=== PATIENT | female | born 1965 | race Caucasian/White ===

== ENCOUNTER 2018-09-02 09:58 | Emergency (ER) | payer MEDICARE ==
[2018-09-02 10:54] LABS: INR-International Normal Ratio 1.4; PTT 37.4 SEC (22.9-36.1); Prothrombin Time 17.1 SEC (12.0-14.7)
[2018-09-02 10:55] LABS: D-Dimer Test 0.61 *mcg/mL (0.27-0.43)
[2018-09-02] MEDS ORDERED: Diltiazem 125 MG/25 ML ONE (11:00)
[2018-09-02 11:06] LABS: ALT (SGPT) 26 U/L (8-55); AST (SGOT) 31 U/L (5-34); Alkaline Phosphatase 175 U/L (40-150); Anion Gap 14 mmol/L (10-20); BUN (Urea Nitrogen) 8 mg/dL (7.0-18.7); Bilirubin, Total 1.2 mg/dL (0.2-1.2); Calc. Creatinine Clearance 0 mL/min (70-130); Calcium 9.6 mg/dL (7.8-10.44); Carbon Dioxide 24 mmol/L (22-29); Chloride 93 mmol/L (98-107); Estimated GFR-MDRD Greater than 90; Glucose 170 mg/dL (70-105); Potassium 3.7 mmol/L (3.5-5.1); Sodium 127 mmol/L (136-145)
[2018-09-02 11:08] LABS: Hemoglobin 12.8 g/dL (12.0-16.0); Mean Corpuscular HGB CONC 33.2 g/dL (32.0-36.0); Mean Corpuscular Hemoglobin 28.6 pg (27.0-31.0); Mean Corpuscular Volume 86.1 fL (78.0-98.0); Mean Platelet Volume 9.5 fL (7.4-10.4); Platelet Count 177 thou/uL (130-400); RBC Distribution Width 12.7 % (11.5-14.5); Red Blood Cell (RBC) Count 4.48 mill/uL (4.20-5.40); White Blood Cell (WBC) Count 4.8 thou/uL (4.8-10.8)
[2018-09-02 11:09] LABS: Band 5 % (5-11); Lymphocytes 4 % (21-51); MDiff Complete? YES; Monocytes 6 % (0-10); Neutrophil 85 % (42-75); Platelet Morphology Comment Appears Adequate
[2018-09-02] MEDS ORDERED: Furosemide 40 MG/4 ML VIAL ONE (11:24)
[2018-09-02] MEDS ORDERED: Enoxaparin Sodium 40 MG/0.4 ML SYRINGE ONE (11:25)
[2018-09-02] MEDS ORDERED: Enoxaparin Sodium 100 MG/ML SYRINGE ONE (11:25)
--- NOTE | 2018-09-02 12:11 | RAD ---
PORTABLE CHEST: Date: 09/02/18 PROVIDED CLINICAL HISTORY: Dyspnea. FINDINGS: No comparisons. Evaluation is limited by patient body habitus. The cardiac and mediastinal silhouette appear enlarged. Prominence of the pulmonary vasculature and p ulmonary interstitium. No evidence for large effusion or pneumothorax. Lower lobe consolidation bilat erally cannot be excluded. IMPRESSION: Limited exam. Findings suggest congestive failure. Consider correlation with follow-up PA and lateral views. POS: [facility]
== END 2018-09-02 12:20 | disposition short-term general hospital (02) ==
LOC: NAV ERS 09:58
DX: I11.0 Hypertensive heart disease with heart failure (principal); I50.9 Heart failure, unspecified; I48.91 Unspecified atrial fibrillation; E11.9 Type 2 diabetes mellitus without complications; Z87.891 Personal history of nicotine dependence; Z79.899 Other long term (current) drug therapy
CPT/HCPCS: 71045; 80053; 83880; 84484; 85025; 85379; 85610; 85730; 93005; 94660; 94760; 96372; 96374; 96375; 96376; J1650; J1940

== ENCOUNTER 2018-09-28 12:42 | Emergency (ER) | payer MEDICARE ==
--- NOTE | 2018-09-28 13:41 | RAD ---
PA AND LATERAL CHEST: Date: 09/28/18 HISTORY: Shortness of breath. FINDINGS: Heart size and mediastinum are within normal limits. Lungs are clear of any infiltrative process. No significant bony findings. IMPRESSION: No active intrathoracic disease. POS: [facility]
[2018-09-28 13:44] LABS: #Basophils 0.2 thou/uL (0.0-0.2); #Eosinphils 0.1 thou/uL (0.0-0.7); #Lymphocytes 1.1 thou/uL (1.20-3.40); #Monocytes 0.7 thou/uL (0.11-0.59); #Neutrophils 4.7 thou/uL (1.40-6.50); %Basophils 2.8 % (0.0-1.0); %Lymphocytes 16.8 % (21.0-51.0); %Monocytes 9.7 % (0.0-10.0); %Neutrophils 69.6 % (42.0-75.0); Hemoglobin 12.8 g/dL (12.0-16.0); Mean Corpuscular Hemoglobin 27.5 pg (27.0-31.0); Mean Corpuscular Volume 88.5 fL (78.0-98.0); Mean Platelet Volume 7.4 fL (7.4-10.4); Platelet Count 272 thou/uL (130-400); RBC Distribution Width 15.7 % (11.5-14.5); Red Blood Cell (RBC) Count 4.66 mill/uL (4.20-5.40); White Blood Cell (WBC) Count 6.8 thou/uL (4.8-10.8)
[2018-09-28 14:00] LABS: ALT (SGPT) 16 U/L (8-55); AST (SGOT) 19 U/L (5-34); Albumin 3.7 g/dL (3.5-5.0); Alkaline Phosphatase 128 U/L (40-150); Anion Gap 16 mmol/L (10-20); BUN (Urea Nitrogen) 6 mg/dL (9.8-20.1); CK (CPK) 22 U/L (29-168); Calc. Creatinine Clearance 0 mL/min (70-130); Calcium 9.4 mg/dL (7.8-10.44); Carbon Dioxide 25 mmol/L (22-29); Chloride 105 mmol/L (98-107); Estimated GFR-MDRD 84; Globulin 2.7 g/dL (2.4-3.5); Glucose 160 mg/dL (70-105); Potassium 4.8 mmol/L (3.5-5.1); Protein, Total 6.4 g/dL (6.0-8.3); Sodium 141 mmol/L (136-145)
== END 2018-09-28 14:53 | disposition home or self-care (01) ==
LOC: NAV ERS 12:42
DX: I48.91 Unspecified atrial fibrillation (principal); E11.9 Type 2 diabetes mellitus without complications; K21.9 Gastro-esophageal reflux disease without esophagitis; J44.9 Chronic obstructive pulmonary disease, unspecified; I11.0 Hypertensive heart disease with heart failure; I50.9 Heart failure, unspecified; Z87.891 Personal history of nicotine dependence; Z79.899 Other long term (current) drug therapy
CPT/HCPCS: 71046; 80053; 82550; 83880; 84484; 85025; 93005; 94760